=== PATIENT | female | born 1980 | race Caucasian/White ===

== ENCOUNTER 2025-10-01 12:29 | Emergency (ER) | payer OTHER, SELFPAY ==
[2025-10-01] MEDS ORDERED: Ketorolac Tromethamine 30 MG (1 mL) VIAL ONE (13:06)
== END 2025-10-01 13:28 | disposition home or self-care (01) ==
LOC: CSHERS 12:29
DX: J11.1 Influenza due to unidentified influenza virus with other respiratory manifestations (principal); I10 Essential (primary) hypertension
CPT/HCPCS: 96372; 99283; J1885